=== PATIENT | male | born 1955 | race African-American/Black ===

== ENCOUNTER 2018-10-02 12:21 | Emergency (ER) | payer MEDICAID ==
[~2018-10-02] VITALS: Ht 180.3 cm; Wt 125.0 kg
[~2018-10-02 12:21] MED LIST: CYCL10 PO; HYDR25TA PO; IBUP-2354 PO
[2018-10-02] MEDS ORDERED: KETOROLAC TROMETHAMINE 10 MG TABLET PO ONE (14:30)
[2018-10-02 16:03] VITALS: BP 135/91
== END 2018-10-02 16:57 | disposition home or self-care (01) ==
LOC: EMS 12:22
DX: M19.90 Unspecified osteoarthritis, unspecified site (principal); N40.0 Benign prostatic hyperplasia without lower urinary tract symptoms; G89.29 Other chronic pain; G43.909 Migraine, unspecified, not intractable, without status migrainosus; M25.551 Pain in right hip; M25.561 Pain in right knee; F17.210 Nicotine dependence, cigarettes, uncomplicated

== ENCOUNTER 2019-02-05 21:25 | Emergency (ER) | payer MEDICAID ==
[~2019-02-05] VITALS: Ht 180.3 cm; Wt 126.4 kg
[2019-02-05] MEDS ORDERED: KETOROLAC TROMETHAMINE 60 MG/2 ML VIAL IM ONE (22:30)
[2019-02-05] MEDS ORDERED: TAMSULOSIN HCL 0.4 MG CAPSULE PO ONE (22:30)
[2019-02-05] MEDS ORDERED: METHOCARBAMOL 500 MG TABLET PO ONE (22:30)
[2019-02-05] MEDS ORDERED: HYDROCODONE/ACETAMINOPHEN 5-325 MG TABLET PO ONE (22:30)
[2019-02-05 22:47] LABS: BASOPHILS % (AUTO) 1.1 % (0.0-2.0); EOSINOPHILS % (AUTO) 5.5 % (1.0-6.0); HEMOGLOBIN 12.2 g/dL (13.5-17.5); MEAN CORPUSCULAR HEMOGLOBIN 24.5 pg (26.0-34.0); MEAN CORPUSCULAR HGB CONC 32.1 G/dL (31.0-37.0); MEAN CORPUSCULAR VOLUME 77 fL (80-100); MONOCYTES # (AUTO) 0.5 K/uL (0.1-1.0); MONOCYTES % (AUTO) 10.5 % (2.0-9.0); NEUTROPHILS # (AUTO) 3.2 K/uL (1.8-7.7); NEUTROPHILS % (AUTO) 62.9 % (40.0-70.0); PLATELET COUNT (AUTO) 331 K/uL (150-450); RED BLOOD CELL COUNT(AUTO) 4.96 MIL/uL (4.50-5.90); RED CELL DISTRIBUTION WIDTH 15.7 % (11.5-14.5)
[2019-02-05 22:59] LABS: ANION GAP 8 mmol/L (8-16); CALCIUM, TOTAL 8.9 mg/dL (8.8-10.5); CARBON DIOXIDE 25 mmol/L (22-29); CHLORIDE 108 mmol/L (98-107); CREATININE 0.99 mg/dL (0.60-1.30); GLOMERULAR FILTR. RATE CALC > 60 mL/min (>60); GLUCOSE,RANDOM 94 mg/dL (70-110); POTASSIUM 3.8 mmol/L (3.5-5.1); SODIUM SERUM 141 mmol/L (136-145); UREA NITROGEN, BLOOD 14 mg/dL (7-18)
[2019-02-06 02:36] VITALS: BP 129/76
== END 2019-02-06 02:50 | disposition home or self-care (01) ==
LOC: EMS 21:34
DX: G89.29 Other chronic pain (principal); M54.5 Low back pain; N40.0 Benign prostatic hyperplasia without lower urinary tract symptoms; I10 Essential (primary) hypertension; G43.909 Migraine, unspecified, not intractable, without status migrainosus; F17.210 Nicotine dependence, cigarettes, uncomplicated; Z79.899 Other long term (current) drug therapy
CPT/HCPCS: 36415; 80048; 84484; 85025; 96372; 99284; 99406; G0480; J1885

== ENCOUNTER 2020-12-10 10:34 | Emergency (ER) | payer MEDICAID, OTHER ==
[~2020-12-10] VITALS: Ht 180.3 cm; Wt 131.8 kg
[~2020-12-10 10:34] MED LIST changes: -HYDR25TA PO; +HYDR25TA2 PO; -IBUP-2354 PO; +IBUP-2759 PO
[2020-12-10 10:48] VITALS: BP 156/96
[2020-12-10] MEDS ORDERED: HYDROCORTISONE 1% 30 GM CREAM TP ONE (13:00)
== END 2020-12-10 13:15 | disposition home or self-care (01) ==
LOC: EMS 10:56
DX: S10.96XA Insect bite of unspecified part of neck, initial encounter (principal); S70.261A Insect bite (nonvenomous), right hip, initial encounter; G89.29 Other chronic pain; I10 Essential (primary) hypertension; G43.909 Migraine, unspecified, not intractable, without status migrainosus; F17.210 Nicotine dependence, cigarettes, uncomplicated; W57.XXXA Bitten or stung by nonvenomous insect and other nonvenomous arthropods, initial encounter; Y93.89 Activity, other specified; Y92.89 Other specified places as the place of occurrence of the external cause; Y99.8 Other external cause status
CPT/HCPCS: 99283

== ENCOUNTER 2021-01-20 12:49 | Emergency (ER) | payer OTHER ==
[~2021-01-20] VITALS: Ht 185.4 cm; Wt 150.0 kg
[2021-01-20] MEDS ORDERED: HYDROCODONE/ACETAMINOPHEN 5-325 MG TABLET PO ONE (14:45)
[2021-01-20 16:29] VITALS: BP 148/94
== END 2021-01-20 16:38 | disposition home or self-care (01) ==
LOC: EMS 12:51
DX: G89.29 Other chronic pain (principal); M25.551 Pain in right hip; I10 Essential (primary) hypertension; F17.210 Nicotine dependence, cigarettes, uncomplicated
CPT/HCPCS: 73502; 99283

== ENCOUNTER 2022-04-08 20:15 | Emergency (ER) | payer MEDICARE, MEDICAID ==
[~2022-04-08] VITALS: Ht 180.3 cm; Wt 129.7 kg
[~2022-04-08 20:15] MED LIST changes: +CYCL-448 PO; -CYCL10 PO
[2022-04-08 20:27] VITALS: BP 135/75
[2022-04-08] MEDS ORDERED: CLOT15CR29 TP (20:37)
[2022-04-08] MEDS ORDERED: CLOTRIMAZOLE 1% 15 GM CREAM TP ONE (21:00)
== END 2022-04-08 20:47 | disposition home or self-care (01) ==
LOC: EMS 20:15
DX: B35.4 Tinea corporis (principal); M54.9 Dorsalgia, unspecified; M25.559 Pain in unspecified hip; M25.569 Pain in unspecified knee; G89.29 Other chronic pain; I10 Essential (primary) hypertension; G43.909 Migraine, unspecified, not intractable, without status migrainosus; F17.210 Nicotine dependence, cigarettes, uncomplicated; Z87.438 Personal history of other diseases of male genital organs
CPT/HCPCS: 99282; Z7502; Z7610

== ENCOUNTER 2022-04-19 08:49 | Emergency (ER) | payer MEDICARE, MEDICAID ==
[~2022-04-19] VITALS: Ht 180.3 cm; Wt 129.1 kg
[2022-04-19 08:59] VITALS: BP 147/89
[2022-04-19] MEDS ORDERED: ACETAMINOPHEN 500 MG TABLET PO ONE (09:00)
[2022-04-19] MEDS ORDERED: DOXY-354 PO (10:39)
[2022-04-19] MEDS ORDERED: DOXYCYCLINE HYCLATE 100 MG TABLET PO ONE (10:45)
[2022-04-19] MEDS ORDERED: BACITRACIN 28 GM OINTMENT TP ONE (10:45)
== END 2022-04-19 10:57 | disposition home or self-care (01) ==
LOC: EMS 08:49
DX: S39.012A Strain of muscle, fascia and tendon of lower back, initial encounter (principal); L03.312 Cellulitis of back [any part except buttock and flank]; I10 Essential (primary) hypertension; G43.909 Migraine, unspecified, not intractable, without status migrainosus; F17.210 Nicotine dependence, cigarettes, uncomplicated; Z87.438 Personal history of other diseases of male genital organs; Z87.39 Personal history of other diseases of the musculoskeletal system and connective tissue; Y04.8XXA Assault by other bodily force, initial encounter; Y93.89 Activity, other specified; Y92.89 Other specified places as the place of occurrence of the external cause; Y99.8 Other external cause status
CPT/HCPCS: 72131; 99284

== ENCOUNTER 2022-04-23 23:13 | Emergency (ER) | payer MEDICARE, MEDICAID ==
[~2022-04-23] VITALS: Ht 180.3 cm; Wt 129.0 kg
[~2022-04-23 23:13] MED LIST changes: +DOXY-354 PO
[2022-04-24] MEDS ORDERED: ACETAMINOPHEN 500 MG TABLET PO ONE (00:15)
[2022-04-24 00:35] LABS: BASOPHILS % (AUTO) 0.3 % (0.0-2.0); MONOCYTES # (AUTO) 0.8 K/uL (0.1-1.0)
[2022-04-24 00:40] LABS: EOSINOPHILS % (AUTO) 8.1 % (1.0-6.0); HEMATOCRIT 33.2 % (41-53); LYMPHOCYTES # (AUTO) 0.6 K/uL (1.0-4.8); LYMPHOCYTES % (AUTO) 10.2 % (22.0-44.0); MEAN CORPUSCULAR HGB CONC 33.3 G/dL (31.0-37.0); MEAN CORPUSCULAR VOLUME 75 fL (80-100); MONOCYTES % (AUTO) 13.1 % (2.0-9.0); NEUTROPHILS # (AUTO) 4.4 K/uL (1.8-7.7); NEUTROPHILS % (AUTO) 68.3 % (40.0-70.0); PLATELET COUNT (AUTO) 304 K/uL (150-450); RED CELL DISTRIBUTION WIDTH 16.5 % (11.5-14.5)
[2022-04-24 00:44] LABS: ANION GAP 8 mmol/L (8-16); CALCIUM, TOTAL 8.4 mg/dL (8.8-10.5); CARBON DIOXIDE 29 mmol/L (22-29); CHLORIDE 102 mmol/L (98-107); GLUCOSE,RANDOM 83 mg/dL (70-110); POTASSIUM 3.6 mmol/L (3.5-5.1); SODIUM SERUM 139 mmol/L (136-145); UREA NITROGEN, BLOOD 8 mg/dL (7-18)
[2022-04-24 00:45] LABS: GLOMERULAR FILTR. RATE CALC > 60 mL/min (>60)
[2022-04-24 00:51] LABS: ALANINE AMINOTRANSFERASE 22 U/L (12-78); ALBUMIN 2.9 g/dL (3.4-5.0); ALKALINE PHOSPHATASE 112 U/L (46-116); ASPARTATE AMINOTRANSFERASE 22 U/L (15-37); BILIRUBIN,TOTAL 0.2 mg/dL (0.1-1.0); TOTAL PROTEIN, SERUM 7.5 g/dL (6.4-8.2)
[2022-04-24 01:04] LABS: B-TYPE NATRIURETIC PEPTIDE 10 pg/mL (0-100)
[2022-04-24] MEDS ORDERED: FURO20 PO (01:16)
[2022-04-24 02:30] VITALS: BP 130/70
== END 2022-04-24 02:48 | disposition home or self-care (01) ==
LOC: EMS 23:13
DX: R60.0 Localized edema (principal); M54.50 Low back pain, unspecified; I10 Essential (primary) hypertension; F17.210 Nicotine dependence, cigarettes, uncomplicated; Z79.899 Other long term (current) drug therapy
CPT/HCPCS: 71045; 80053; 83880; 85025; 99284; 36415-L1; 36415-TC

== ENCOUNTER 2023-05-08 17:39 | Emergency (ER) | payer MEDICARE, OTHER ==
[~2023-05-08] VITALS: Ht 180.3 cm; Wt 141.4 kg
[~2023-05-08 17:39] MED LIST changes: +FURO20 PO; -IBUP-2759 PO; +IBUP-45 PO
[2023-05-08 19:38] VITALS: BP 135/84; PULSE 110; RESP 18; TEMP 99.2
== END 2023-05-08 21:51 | disposition left against medical advice (07) ==
LOC: EMS 17:41
DX: M79.604 Pain in right leg (principal); Z53.21 Procedure and treatment not carried out due to patient leaving prior to being seen by health care provider

== ENCOUNTER 2023-06-23 08:47 | Emergency (ER) | payer MEDICARE, OTHER ==
[~2023-06-23] VITALS: Ht 180.3 cm; Wt 127.3 kg
[2023-06-23 08:48] VITALS: TEMP 98.4
[2023-06-23] MEDS ORDERED: TAMS0.4C94 PO (08:55)
[2023-06-23] MEDS ORDERED: KETOROLAC TROMETHAMINE 30 MG/ML VIAL IM ONE (09:15)
[2023-06-23 10:00] VITALS: BP 140/90; PULSE 98; RESP 12
[2023-06-23] MEDS ORDERED: IBUP-1492 PO (10:00)
== END 2023-06-23 10:13 | disposition home or self-care (01) ==
LOC: EMS 09:01
DX: G89.29 Other chronic pain (principal); M25.551 Pain in right hip; I10 Essential (primary) hypertension; G43.909 Migraine, unspecified, not intractable, without status migrainosus; F17.210 Nicotine dependence, cigarettes, uncomplicated
CPT/HCPCS: 99283; 96372; J1885

== ENCOUNTER 2023-06-28 12:01 | Emergency (ER) | payer MEDICARE, OTHER ==
[~2023-06-28] VITALS: Ht 180.3 cm; Wt 102.3 kg
[~2023-06-28 12:01] MED LIST changes: -CYCL-448 PO; -DOXY-354 PO; -FURO20 PO; -HYDR25TA2 PO; +IBUP-1492 PO; -IBUP-45 PO; +TAMS0.4C94 PO
[2023-06-28] MEDS ORDERED: LISI5TAB21 PO (12:58)
[2023-06-28] MEDS ORDERED: ACETAMINOPHEN 500 MG TABLET PO ONE (13:00)
[2023-06-28 18:58] VITALS: BP 153/90; PULSE 92; RESP 18; TEMP 97.9
[2023-06-28] MEDS ORDERED: TRAM-559 PO (19:22)
[2023-06-28] MEDS ORDERED: TraMADol HCL 50 MG TABLET PO ONE (19:30)
[2023-06-28] MEDS ORDERED: ACET-66 PO (19:31)
== END 2023-06-28 19:42 | disposition home or self-care (01) ==
LOC: EMS 12:21
DX: M16.11 Unilateral primary osteoarthritis, right hip (principal); G89.29 Other chronic pain; M25.551 Pain in right hip; I10 Essential (primary) hypertension; G43.909 Migraine, unspecified, not intractable, without status migrainosus; F17.210 Nicotine dependence, cigarettes, uncomplicated
CPT/HCPCS: 73521; 99284; 72192-99; Z7502; Z7610